=== PATIENT | male | born 1955 | race Hispanic/Latino ===

== ENCOUNTER 2017-10-28 16:48 | Emergency (ER) | payer MEDICARE ==
[2017-10-28] MEDS ORDERED: CYCLOBENZAPRINE HCL 10 MG TABLET ONE (17:32)
[2017-10-28] MEDS ORDERED: ACETAMINOPHEN EXTRA STRENGTH 500 MG TABLET ONE (17:32)
== END 2017-10-28 18:13 | disposition home or self-care (01) ==
LOC: EDH 16:48
DX: S39.012A Strain of muscle, fascia and tendon of lower back, initial encounter (principal); I10 Essential (primary) hypertension; E78.5 Hyperlipidemia, unspecified; E11.9 Type 2 diabetes mellitus without complications; Z86.73 Personal history of transient ischemic attack (TIA), and cerebral infarction without residual deficits; X58.XXXA Exposure to other specified factors, initial encounter; Y93.89 Activity, other specified; Y92.89 Other specified places as the place of occurrence of the external cause; Y99.8 Other external cause status
CPT/HCPCS: 72100

== ENCOUNTER 2017-11-24 15:56 | Emergency (ER) | payer MEDICARE ==
[2017-11-24 16:55] LABS: BASOPHILS % (AUTO) 0.5 % (0.0-5.0); EOSINOPHILS % (AUTO) 1.1 % (0.0-8.0); HEMATOCRIT 36.4 % (42-54); LYMPHOCYTES % (AUTO) 29.6 % (21.0-51.0); MEAN CORPUSCULAR HEMOGLOBIN 31.2 pg (27.0-33.0); MEAN CORPUSCULAR HGB CONC 34.4 g/dL (32.0-36.0); MEAN CORPUSCULAR VOLUME 90.6 fL (79-99); NEUTROPHILS % (AUTO) 57.8 % (40.0-77.0); NUCLEATED RED BLOOD CELLS 0.1 % (0.0-0.19); PLATELET COUNT (AUTO) 450 K/uL (130-400); RED BLOOD CELL COUNT(AUTO) 4.02 MIL/uL (4.50-6.20); RED CELL DISTRIBUTION WIDTH 13.7 % (11.0-15.5); WHITE BLOOD COUNT (AUTO) 5.2 K/uL (4.8-10.8)
[2017-11-24 17:09] LABS: INR 0.96 (0.85-1.15); PROTHROMBIN TIME 9.9 SEC (9.6-11.6)
[2017-11-24 17:37] LABS: APPEARANCE,URINE Clear (CLEAR); BILIRUBIN,URINE Negative (NEGATIVE); COLOR,URINE Yellow (YELLOW); GLUCOSE, URINE (UA) >=1000 mg/dL (NEGATIVE); KETONES,URINE Negative (NEGATIVE); LEUKOCYTE ESTERASE ,URINE Negative (NEGATIVE); NITRATE,URINE Negative (NEGATIVE); OCCULT BLOOD,URINE Negative (NEGATIVE); PROTEIN,URINE Negative (NEGATIVE)
[2017-11-24 17:46] LABS: BACTERIA,URINE None Seen /HPF (None Seen); RBC,URINE None Seen /HPF (0-1); SQUAMOUS EPITHELIAL CELL,UR None Seen /HPF (0-2); WBC,URINE None Seen /HPF (0-1)
[2017-11-24] MEDS ORDERED: TRAMADOL HCL 50 MG TABLET ONE (17:50)
[2017-11-24 17:52] LABS: CREATININE 1.3 mg/dL (0.5-1.5); POTASSIUM 3.9 mmol/L (3.5-5.1)
[2017-11-24 18:05] LABS: BILIRUBIN,TOTAL 0.3 mg/dL (0.2-1.0)
[2017-11-24] MEDS ORDERED: TETANUS/DIPHTHERIA TOXOID [ADULT] 0.5 ML VIAL IM ONE (18:16)
== END 2017-11-24 18:49 | disposition home or self-care (01) ==
LOC: EDH 15:56
DX: S61.222A Laceration with foreign body of right middle finger without damage to nail, initial encounter (principal); M54.2 Cervicalgia; E11.9 Type 2 diabetes mellitus without complications; E78.5 Hyperlipidemia, unspecified; I10 Essential (primary) hypertension; R79.1 Abnormal coagulation profile; Z86.73 Personal history of transient ischemic attack (TIA), and cerebral infarction without residual deficits; V49.49XA Driver injured in collision with other motor vehicles in traffic accident, initial encounter; Y93.89 Activity, other specified; Y92.89 Other specified places as the place of occurrence of the external cause; Y99.8 Other external cause status
CPT/HCPCS: 36415; 70450; 71045; 72125; 73130; 80053; 81001; 82550; 82553; 83690; 84484; 85025; 85610; 85730; 90471; 90714; 93005

== ENCOUNTER 2022-05-30 09:44 | Day surgery (SDC) | payer MEDICARE, OTHER ==
[2022-05-28 16:25] LABS: BASOPHILS % (AUTO) 0.7 % (0.0-5.0); EOSINOPHILS % (AUTO) 1.7 % (0.0-8.0); HEMATOCRIT 38.8 % (42-54); MEAN CORPUSCULAR HGB CONC 32.5 g/dL (32.0-36.0); MEAN CORPUSCULAR VOLUME 95.3 fL (79-99); MONOCYTES % (AUTO) 9.1 % (3.0-13.0); NEUTROPHILS % (AUTO) 44.9 % (40.0-77.0); PLATELET COUNT (AUTO) 351 K/uL (130-400); RED BLOOD CELL COUNT(AUTO) 4.07 MIL/uL (4.50-6.20); RED CELL DISTRIBUTION WIDTH 13.6 % (11.0-15.5)
[2022-05-28 16:35] LABS: INR 0.95 (0.85-1.15); PROTHROMBIN TIME 10.4 SEC (9.6-11.6)
[2022-05-28 16:37] LABS: CREATININE 1.1 mg/dL (0.5-1.5); PARTIAL THROMBOPLASTIN TIME 28.8 SEC (26.3-35.5); POTASSIUM 4.1 mmol/L (3.5-5.1)
[2022-05-28 17:01] LABS: APPEARANCE,URINE CLEAR (CLEAR); BILIRUBIN,URINE NEGATIVE (NEGATIVE); COLOR,URINE LIGHT-YELLOW (YELLOW); GLUCOSE, URINE (UA) >=1000 mg/dL (NEGATIVE); KETONES,URINE NEGATIVE (NEGATIVE); LEUKOCYTE ESTERASE ,URINE NEGATIVE Leu/uL (NEGATIVE); NITRATE,URINE NEGATIVE (NEGATIVE); OCCULT BLOOD,URINE NEGATIVE (NEGATIVE); PROTEIN,URINE NEGATIVE (NEGATIVE); UROBILINOGEN,URINE 0.2 mg/dL (0.2-1.0)
[2022-05-28 17:03] LABS: MUCUS,URINE RARE LPF (None Seen); RBC,URINE 0-1 /HPF (0-1); WBC,URINE 0-1 /HPF (0-1)
[2022-05-29 09:42] VITALS: BP 168/69
[~2022-05-30] VITALS: Ht 167.6 cm; Wt 83.4 kg
[2022-05-30] VITALS (9 sets, daily range): BP systolic 104–137; BP diastolic 59–76
[~2022-05-30 09:44] MED LIST: 0.9%NACL 1000ML 1,000 ML IV SCH; AEC81 PO; CELE200C PO; CILO100T3 PO; CLOP75TA32 PO; DiphenhydrAMINE HCL 50 MG/ML VIAL IVP SCH; EMPA10TA PO; FENO145T26 PO; GABA-529 PO; GLIP1TAB6 PO; LISI10TA24 PO; MONT-39 PO; MV-M1TAB20 PO; NITR0.4T50 SL; OMEP40CA21 PO; PIOG30TA70 PO; ROSU20TA31 PO
[2022-05-30] MEDS ORDERED: DiphenhydrAMINE HCL 50 MG/ML VIAL ONE (11:31)
[2022-05-30] MEDS ORDERED: IODIXANOL 320 MG/ML 100 ML VIAL ONE (13:06)
[2022-05-30] MEDS ORDERED: HEPARIN 10,000 UNIT/10ML (1,000 UNIT/ML) VIAL ONE (13:06)
[2022-05-30] MEDS ORDERED: NITROGLYCERIN 50MG VIAL ONE (13:06)
[2022-05-30] MEDS ORDERED: HEPARIN 1,000 UNIT VIAL ONE (13:17)
[2022-05-30] MEDS ORDERED: FENTANYL CITRATE PF 50 MCG/1 ML 2ML VIAL ONE (13:48)
[2022-05-30] MEDS ORDERED: MIDAZOLAM HCL 1 MG/ML 2ML VIAL ONE (13:48)
[2022-05-30] MEDS ORDERED: 0.9%NACL 1000ML 1,000 ML IV SCH (15:00)
[2022-05-30] MEDS ORDERED: ACETAMINOPHEN 500 MG TABLET ONE (17:51)
[2022-05-30] MEDS ORDERED: ACETAMINOPHEN 500 MG TABLET PO SCH (18:00)
== END 2022-05-30 18:41 | disposition home or self-care (01) ==
LOC: DAH 09:44
PROVIDERS: ATTEND Internal Medicine Cardiovascular Disease
DX: I70.213 Atherosclerosis of native arteries of extremities with intermittent claudication, bilateral legs (principal); E11.51 Type 2 diabetes mellitus with diabetic peripheral angiopathy without gangrene; I70.92 Chronic total occlusion of artery of the extremities; I10 Essential (primary) hypertension; E78.5 Hyperlipidemia, unspecified; E11.65 Type 2 diabetes mellitus with hyperglycemia; Z79.01 Long term (current) use of anticoagulants; Z79.899 Other long term (current) drug therapy; Z79.82 Long term (current) use of aspirin; Z87.891 Personal history of nicotine dependence
CPT/HCPCS: 80048; 85025; 85610; 85730; 81001; 36415; 93005; 75710; 36245; 82948 ×2; C1769; C1894 ×2; C1760; J1200; J3010; J7030; J2250; J1644 ×2; J3490; Q9967; A4215; A4222; A4221; A4663; A4216; A4606; A4223 ×3; 36247; 99156; 99157